=== PATIENT | male | born 1955 | race Caucasian/White ===

== ENCOUNTER 2021-11-30 14:34 | Emergency (ER) | payer OTHER ==
[2021-11-30 15:12] LABS: Absolute Lymphocytes (CBC) 82.7 K/uL (0.7-4.9); Hematocrit 42.2 % (39.6-49.0); Lymphocytes % 89.5 % (15.3-44.8); MCV 92.3 fL (80-100); MPV 7.5 fL (7.6-11.3); RBC Red Blood Cell Count 4.57 M/uL (4.33-5.43)
[2021-11-30 15:19] LABS: Protime INR 1.03
--- NOTE | 2021-11-30 15:20 | RAD REPORT ---
EXAM DESCRIPTION: CT - Ct Stroke Brain Wo Cont - 11/30/2021 3:10 pm CLINICAL HISTORY: Slurred speech COMPARISON: none TECHNIQUE: Computed axial tomography of the head was obtained. All CT scans are performed using dose optimization technique as appropriate and may include automated exposure control or mA/KV adjustment according to patient size. FINDINGS: An intracranial bleed is not seen . The ventricles are normal in caliber. No extra-axial fluid collection is noted. No significant hypodensity within the brain Fluid within the sinuses/ mastoids is not seen. IMPRESSION: No acute intracranial abnormality is seen. If patient's symptoms persist MRI of the bra in would be recommended. Rani of the emergency room was notified at 3:15 p.m. on November 30, 2021
[2021-11-30 15:26] LABS: Barbiturates NEGATIVE (NEGATIVE); Benzodiazepines NEGATIVE (NEGATIVE); Cocaine NEGATIVE (NEGATIVE); METHAMPHETAM NEGATIVE (NEGATIVE); Methadone NEGATIVE (NEGATIVE); Opiates NEGATIVE (NEGATIVE); Phencyclidine NEGATIVE (NEGATIVE); THC Cannibis NEGATIVE (NEGATIVE)
[2021-11-30] MEDS ORDERED: FOLIC ACID 5 MG/ML VIAL ONE (15:32)
[2021-11-30] MEDS ORDERED: NA CHLORIDE 0.9% 250 ML ONE (15:32)
[2021-11-30 15:33] LABS: Magnesium 2.2 mg/dL (1.8-2.4); Potassium 4.6 mmol/L (3.5-5.1)
--- NOTE | 2021-11-30 16:01 | RAD REPORT ---
EXAM DESCRIPTION: Juan Single View11/30/2021 3:52 pm CLINICAL HISTORY: Slurred speech and numbness COMPARISON: none FINDINGS: The lungs appear clear of acute infiltrate. The heart is normal size IMPRESSION: No acute abnormalities displayed
--- NOTE | 2021-11-30 16:06 | ER ---
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 Ebola Screen: Patient negative for fever greater than or equal to 101.5 degrees Fahrenheit, and additional compatible Ebola Virus Disease symptoms Patient denies exposure to infectious person. Patient denies travel to an Ebola-affected area in the 21 days before illness onset. No symptoms or risks identified at this time. Initial Sepsis Screen: Does the patient meet any 2 criteria? No. Patient's initial sepsis screen is negative. Does the patient have a suspected source of infection? No. Patient's initial sepsis screen is negative. Risk Assessment: Do you want to hurt yourself or someone else? Patient reports no desire to harm self or others. Onset of symptoms was November 29, 2021. 14:46 Method Of Arrival: Ambulatory iw 14:50 Coronavirus screen: At this time, the client does not indicate any symptoms associated iw with coronavirus-19. 14:50 Acuity: MARIO 3 iw Triage Assessment: 14:50 General: Appears in no apparent distress. comfortable, Behavior is calm, cooperative, bp appropriate for age. Pain: Denies pain. EENT: LEFT FACIAL PARALYSIS INVOLVING BROW AND ORBIT. Neuro: Facial droop on left. Cardiovascular: No deficits noted. Respiratory: No deficits noted. GI: No signs and/or symptoms were reported involving the gastrointestinal system. : No signs and/or symptoms were reported regarding the genitourinary system. Derm: No deficits noted. Musculoskeletal: No deficits noted. Historical: - Allergies: 14:49 No Known Allergies; iw - Home Meds: 14:49 None [Active]; iw - PMHx: 15:31 Leukemia; iw - Immunization history:: Adult Immunizations up to date. - Social history:: Smoking status: Patient denies any tobacco usage or history of. Screenin:57 Abuse screen: Denies threats or abuse. Denies injuries from another. Nutritional bp screening: No deficits noted. Tuberculosis screening: No symptoms or risk factors identified. Fall Risk None identified. Assessment: 14:50 General: SEE TRIAGE NOTE. bp 15:57 Reassessment: No changes from previously documented assessment. Patient and/or family bp updated on plan of care and expected duration. Pain level reassessed. 16:38 Reassessment: DC HOME. bp Vital Signs: 14:46 BP 153 / 96; Pulse 75; Resp 16; Temp 98.5; Pulse Ox 98% ; bp 15:57 BP 136 / 96; Pulse 68; Resp 16; Pulse Ox 98% ; bp 16:38 BP 124 / 83; Pulse 72; Resp 16; Pulse Ox 95% ; bp Vernon Coma Score: 14:52 Eye Response: spontaneous(4). Verbal Response: oriented(5). Motor Response: obeys snw commands(6). Total: 15. NIH Stroke Scale Scores: 14:52 NIHSS Score: 3 snw ED Course: 14:38 Patient arrived in ED. as 14:44 Rani Nguyen FNP-C is [facility]. snw 14:44 Cong Escalante MD is Attending Physician. snw 14:50 Triage completed. iw 14:50 Arm band placed on. iw 14:51 Anthony Maldonado, ROSE is Primary Nurse. bp 15:00 Inserted saline lock: 20 gauge in left forearm, using aseptic technique. Blood bp collected. 15:10 UDS Sent. iw 15:12 CT Stroke Brain w/o Contrast In Process Unspecified. EDMS 15:54 Stroke CXR 1 View In Process Unspecified. EDMS 15:57 Patient has correct armband on for positive identification. Bed in low position. Call bp light in reach. Side rails up X2. 16:38 No provider procedures requiring assistance completed. IV discontinued, intact, bp bleeding controlled, No redness/swelling at site. Pressure dressing applied. Administered Medications: 15:10 Drug: foLIC Acid 1 mg Route: IVPB; Site: left forearm; bp 16:37 Follow up: IV Status: Completed infusion; IV Intake: 100ml bp 16:00 Drug: Acyclovir 400 mg Route: PO; bp 16:38 Follow up: Response: No adverse reaction bp 16:00 Drug: SOLU-Medrol (methylPrednisoLONE) 125 mg Route: IVP; Site: left forearm; bp 16:38 Follow up: Response: No adverse reaction bp Medication: 15:57 VIS not applicable for this client. bp Intake: 16:37 IV: 100ml; Total: 100ml. bp Outcome: 16:05 Discharge ordered by . snw 16:38 Discharged to home ambulatory. bp 16:38 Condition: stable 16:38 Discharge instructions given to patient, Instructed on discharge instructions, follow up and referral plans. medication usage, Demonstrated understanding of instructions, follow-up care, medications, Prescriptions given X 3. 16:39 Patient left the ED. bp NIH Stroke Scale - NIH Stroke Score Date: 11/30/2021 Time: 14:52 Total Score = 3 1a. Level of Consciousness (LOC) - 0(Alert) 1b. Level of Consciousness (LOC) (Month \T\ Age) - 0(Both) 1c. LOC Commands (Open \T\ Closes Eyes/Data Support Analyst) - 0(Both) 2. Best Gaze (Lateral Gaze Paresis) - 0(Normal) 3. Visual Field Loss - 0(No visual loss) 4. Facial Palsy - 2(Partial paralysis) 5a. Left Arm: Motor (10-second hold) - 0(No drift) 5b. Right Arm: Motor (10-second hold) - 0(No drift) 6a. Left Leg: Motor (5-second hold - always test supine) - 0(No drift) 6b. Right Leg: Motor (5-second hold - always test supine) - 0(No drift) 7. Limb Ataxia (finger/nose \T\ heel/salvador - test with eyes open) - 0(Absent) 8. Sensory Loss (pinprick arms/legs/face) - 0(Normal) 9. Best Language: Aphasia (description/naming/reading) - 0(No aphasia) 10. Dysarthria (speech clarity - read or repeat words) - 1(Mild to Moderate) 11. Extinction and Inattention (visual/tactile/auditory/spatial/personal) - 0(No abnormality) Initials: snw Signatures: Dispatcher [employer] Rani Melgar FNP-C SLAG DUMPER-Lori Kelly Irene, RN RN iw Peltier, Brian, RN RN bp Corrections: (The following items were deleted from the chart) 15:54 14:46 BP 153 / 96; Pulse 75bpm; Resp 16bpm; Pulse Ox 98%; iw bp
--- NOTE | 2021-11-30 16:07 | EDPHYS ---
Physician Documentation [facility] Name: Moses Santos Age: 66 yrs Sex: Male : 1955 Arrival Date: 11/30/2021 Time: 14:38 Bed 16 Private MD: ED Physician Cong Escalante HPI: 11/30 14:50 This 66 yrs old Male presents to ER via Ambulatory with complaints of Facial Droop, snw Slurred Speech. 14:50 Context: occurred at home. Patient's baseline: The patient has a previous history of snw leukemia. 14:52 The patient presents to the emergency department with a speech or higher order brain snw function problem, slurring, paresthesias of the left side of the face. Onset: The symptoms/episode began/occurred gradually, 1 day(s) ago, and became persistent. Associated signs and symptoms: Pertinent positives: headache, left eye watering. Severity of symptoms: At their worst the symptoms were moderate. Current symptoms: paralysis or paresis, that is moderate, that is severe, to left upper and lower face. The patient has not experienced similar symptoms in the past. The patient has not recently seen a physician. Historical: - Allergies: 14:49 No Known Allergies; iw - Home Meds: 14:49 None [Active]; iw - PMHx: 15:31 Leukemia; iw - Immunization history:: Adult Immunizations up to date. - Social history:: Smoking status: Patient denies any tobacco usage or history of. ROS: 14:52 Cardiovascular: Negative for chest pain, palpitations, and edema, Respiratory: Negative snw for shortness of breath, cough, wheezing, and pleuritic chest pain, Abdomen/GI: Negative for abdominal pain, nausea, vomiting, diarrhea, and constipation, Back: Negative for injury and pain, : Negative for injury, bleeding, discharge, and swelling, MS/Extremity: Negative for injury and deformity, Skin: Negative for injury, rash, and discoloration. 14:52 Constitutional: Positive for malaise. 14:52 Eyes: Positive for itching, tearing. 14:52 ENT: Positive for nasal discharge. 14:52 Neuro: Positive for headache, slurred speech, facial paralysis. Exam: 14:52 Constitutional: This is a well developed, well nourished patient who is awake, alert, snw and in no acute distress. 14:52 Neck: Trachea midline, no thyromegaly or masses palpated, and no cervical lymphadenopathy. Supple, full range of motion without nuchal rigidity, or vertebral point tenderness. No Meningismus. Chest/axilla: Normal chest wall appearance and motion. Nontender with no deformity. No lesions are appreciated. Cardiovascular: Regular rate and rhythm with a normal S1 and S2. No gallops, murmurs, or rubs. Normal PMI, no JVD. No pulse deficits. Respiratory: Lungs have equal breath sounds bilaterally, clear to auscultation and percussion. No rales, rhonchi or wheezes noted. No increased work of breathing, no retractions or nasal flaring. Abdomen/GI: Soft, non-tender, with normal bowel sounds. No distension or tympany. No guarding or rebound. No evidence of tenderness throughout. Back: No spinal tenderness. No costovertebral tenderness. Full range of motion. Skin: Warm, dry with normal turgor. Normal color with no rashes, no lesions, and no evidence of cellulitis. MS/ Extremity: Pulses equal, no cyanosis. Neurovascular intact. Full, normal range of motion. 14:52 Head/face: Noted is left facial paralysis. 14:52 Eyes: Conjunctiva: tearing noted, in left eye. 14:52 ENT: Mouth: left facial paralysis. 14:52 Neuro: Orientation: is normal, Mentation: is normal, Memory: is normal, Motor: facial paralysis, Gait: is steady, seizure activity, is not displayed by the patient, Abnormal movements: there are no abnormal movements. 18:04 ECG was reviewed by the Attending Physician. kdr Vital Signs: 14:46 BP 153 / 96; Pulse 75; Resp 16; Temp 98.5; Pulse Ox 98% ; bp 15:57 BP 136 / 96; Pulse 68; Resp 16; Pulse Ox 98% ; bp 16:38 BP 124 / 83; Pulse 72; Resp 16; Pulse Ox 95% ; bp NIH Stroke Scale Scores: 14:52 NIHSS Score: 3 snw Genevieve Coma Score: 14:52 Eye Response: spontaneous(4). Verbal Response: oriented(5). Motor Response: obeys snw commands(6). Total: 15. MDM: 14:52 Special discussion: Based on the history and exam findings, there is no indication for snw further emergent testing or inpatient evaluation. I discussed with the patient/guardian the need to see the primary care provider for further evaluation of the symptoms. 14:52 Data reviewed: vital signs, nurses notes. Data interpreted: Pulse oximetry: on room air snw is 98 %. Interpretation: normal. Counseling: I had a detailed discussion with the patient and/or guardian regarding: the historical points, exam findings, and any diagnostic results supporting the discharge/admit diagnosis, the presence of at least one elevated blood pressure reading (>120/80) during this emergency department visit. 15:03 Patient medically screened. snw 11/30 14:51 Order name: Basic Metabolic Panel; Complete Time: 15:34 snw 11/30 14:51 Order name: CBC with Diff; Complete Time: 16:39 snw 11/30 14:51 Order name: CPK; Complete Time: 15:34 snw 11/30 14:51 Order name: Magnesium; Complete Time: 15:34 snw 11/30 14:51 Order name: Protime (+inr); Complete Time: 15:24 snw 11/30 14:51 Order name: Ptt, Activated; Complete Time: 15:24 snw 11/30 14:51 Order name: UDS; Complete Time: 15:30 snw 11/30 14:51 Order name: CT Stroke Brain w/o Contrast; Complete Time: 15:24 snw 11/30 14:51 Order name: Stroke CXR 1 View; Complete Time: 16:03 snw 11/30 16:36 Order name: Manual Differential; Complete Time: 16:39 EDMS 11/30 16:36 Order name: Slides for Pathologist Review EDUT 11/30 14:51 Order name: EKG; Complete Time: 14:52 snw 11/30 14:51 Order name: Accucheck; Complete Time: 15:28 snw 11/30 14:51 Order name: Cardiac monitoring; Complete Time: 15:28 snw 11/30 14:51 Order name: EKG - Nurse/Tech; Complete Time: 15:38 snw 11/30 14:51 Order name: IV Saline Lock; Complete Time: 15:28 snw 11/30 14:51 Order name: Labs collected and sent; Complete Time: 15:28 snw 11/30 14:51 Order name: NPO; Complete Time: 15:28 snw 11/30 14:51 Order name: O2 Per Protocol; Complete Time: 15:28 snw 11/30 14:51 Order name: O2 Sat Monitoring; Complete Time: 15:28 snw 11/30 14:51 Order name: Stroke Swallow Screen; Complete Time: 15:28 snw 11/30 15:00 Order name: Misc. Order: instill NS in left eye and tape closed please; Complete Time: snw 15:38 EC:04 Rate is 70 beats/min. Rhythm is regular, Normal Sinus Rhythm with No ectopy. QRS [place] kdr is Normal. [place] interval is normal. QRS interval is normal. QT interval is normal. Clinical impression: Normal ECG. Administered Medications: 15:10 Drug: foLIC Acid 1 mg Route: IVPB; Site: left forearm; bp 16:37 Follow up: IV Status: Completed infusion; IV Intake: 100ml bp 16:00 Drug: Acyclovir 400 mg Route: PO; bp 16:38 Follow up: Response: No adverse reaction bp 16:00 Drug: SOLU-Medrol (methylPrednisoLONE) 125 mg Route: IVP; Site: left forearm; bp 16:38 Follow up: Response: No adverse reaction bp Disposition: 16:55 Co-signature as Attending Physician, Cong Escalante MD I agree with the assessment and kdr plan of care. Disposition Summary: 11/30/21 16:05 Discharge Ordered Location: Home snw Condition: Stable snw Diagnosis - Rose's palsy snw - Personal history of leukemia - has declined treatment snw Followup: snw - With: Emergency Department - When: As needed - Reason: Worsening of condition Followup: snw - With: Private Physician - When: 2 - 3 days - Reason: Recheck today's complaints, Continuance of care, Re-evaluation by your physician Discharge Instructions: - Discharge Summary Sheet snw - Rose Palsy, Adult snw - Dry Eye snw - Chronic Lymphocytic Leukemia snw Forms: - Medication Reconciliation Form snw - Thank You Letter snw - Antibiotic Education snw - Prescription Opioid Use snw Prescriptions: - SYSTANE OVERNIGHT GEL - instill 2 drop by OPHTHALMIC route 3-4 times daily; 10 gram; Refills: 0, snw Product Selection Permitted - valacyclovir 1 gram Oral tablet - take 1 tablet by ORAL route 3 times per day for 7 days; 21 tablet; Refills: 0, snw Product Selection Permitted - Prednisone 20 mg Oral Tablet - take 1 tablet by ORAL route every 12 hours for 5 days; 10 tablet; Refills: 0, snw Product Selection Permitted NIH Stroke Scale - NIH Stroke Score Date: 11/30/2021 Time: 14:52 Total Score = 3 1a. Level of Consciousness (LOC) - 0(Alert) 1b. Level of Consciousness (LOC) (Month \T\ Age) - 0(Both) 1c. LOC Commands (Open \T\ Closes Eyes/Metal Checker) - 0(Both) 2. Best Gaze (Lateral Gaze Paresis) - 0(Normal) 3. Visual Field Loss - 0(No visual loss) 4. Facial Palsy - 2(Partial paralysis) 5a. Left Arm: Motor (10-second hold) - 0(No drift) 5b. Right Arm: Motor (10-second hold) - 0(No drift) 6a. Left Leg: Motor (5-second hold - always test supine) - 0(No drift) 6b. Right Leg: Motor (5-second hold - always test supine) - 0(No drift) 7. Limb Ataxia (finger/nose \T\ heel/salvador - test with eyes open) - 0(Absent) 8. Sensory Loss (pinprick arms/legs/face) - 0(Normal) 9. Best Language: Aphasia (description/naming/reading) - 0(No aphasia) 10. Dysarthria (speech clarity - read or repeat words) - 1(Mild to Moderate) 11. Extinction and Inattention (visual/tactile/auditory/spatial/personal) - 0(No abnormality) Initials: snw Signatures: Dispatcher [employer] EDCong Monreal MD MD kdr Waters, Shelly, BOTTLE HOP-C BOTTLE HOP-Csnw Cynthia Rowell RN RN iw Peltier, Brian, RN RN bp
[2021-11-30] MEDS ORDERED: METHYLPREDNISOLONE 125 MG INJ ONE (16:23)
[2021-11-30] MEDS ORDERED: ACYCLOVIR 400 MG TABLET ONE (16:23)
[2021-11-30 16:39] LABS: Blood Morphology Comment NOT SEEN (NOT SEEN); Platelet Estimate ADEQ
[2021-11-30 17:09] VITALS: TEMP 98.5
[2021-11-30 17:21] VITALS: BP 124/83; O2SAT 95
--- NOTE | 2021-12-01 11:31 | EKG ---
Test Date: 2021-11-30 Test Time: 15:35:48 Law Clerk: FER MEASUREMENT RESULTS: Intervals: Rate: 70 HI: 190 QRSD: 90 QT: 392 QTc: 423 [place]: P: 58 HI: 190 QRS: 52 T: 47 INTERPRETIVE STATEMENTS: Normal sinus rhythm Normal ECG No previous ECG available for comparison Electronically Signed On 12-01-21 11:30:50 CDT by Saqib Cabral
== END 2021-11-30 16:39 | disposition home or self-care (01) ==
LOC: ER 14:34
DX: G51.0 Bell's palsy (principal); Z85.6 Personal history of leukemia
CPT/HCPCS: 96365; 93005; 85025; 80048; 36415; 83735; 82550; 85610; 85730; 80307; 70450; 71045; 96375; 99284; J7050; J2930